=== PATIENT | female | born 1990 | race Caucasian/White ===

== ENCOUNTER 2018-07-01 16:25 | Emergency (ER) | payer SELFPAY ==
[~2018-07-01] VITALS: Ht 149.9 cm; Wt 49.9 kg
[2018-07-01 16:27] VITALS: BP 113/63
--- NOTE | 2018-07-01 16:27 | NUR ---
PT TRIAGED IN [facility]
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
[2018-07-01 16:45] VITALS: BP 117/67
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
== END 2018-07-01 16:45 ==
LOC: MED 16:25
DX: Z02.89 Encounter for other administrative examinations (principal)
CPT/HCPCS: 99283